=== PATIENT | female | born 1995 | race African-American/Black ===

== ENCOUNTER 2021-11-07 09:25 | Emergency (ER) | payer OTHER ==
[~2021-11-07] VITALS: Ht 157.5 cm; Wt 88.5 kg
[2021-11-07 10:14] LABS: PLATELET COUNT 252 K/uL (152-353)
[2021-11-07 10:19] LABS: POTASSIUM 3.7 mmol/L (3.6-5.2)
[2021-11-07 13:26] VITALS: BP 105/60; TEMP 97.8
== END 2021-11-07 13:26 | disposition home or self-care (01) ==
LOC: ED 09:25
PROVIDERS: Emergency Medicine
DX: O20.8 Other hemorrhage in early pregnancy (principal); Z3A.13 13 weeks gestation of pregnancy
CPT/HCPCS: 36415; 80048; 84702; 85027; 96374; 96375; 99284; J2175; J2405